=== PATIENT | male | born 1970 | race Caucasian/White ===

== ENCOUNTER → 2025-03-07 07:12 | Outpatient (REF) | payer OTHER, SELFPAY | LOC: RCS 07:12 | PROVIDERS: ATTENDING PHYSICIAN Internal Medicine Cardiovascular Disease; FAMILY PHYSICIAN Family Medicine | DX: C90.00 Multiple myeloma not having achieved remission (principal); I10 Essential (primary) hypertension; I67.1 Cerebral aneurysm, nonruptured | CPT/HCPCS: 93306; 93356 ==